=== PATIENT | female | born 1995 | race Caucasian/White ===

== ENCOUNTER 2017-12-20 22:39 | Emergency (ER) | payer MEDICAID ==
[~2017-12-20] VITALS: Ht 157.5 cm; Wt 128.8 kg
[2017-12-20 22:42] VITALS: Ht 157.5 cm; Wt 128.8 kg
[2017-12-21 02:58] VITALS: BP 131/76
== END 2017-12-21 02:58 | disposition home or self-care (01) ==
LOC: ED 22:39
DX: L02.213 Cutaneous abscess of chest wall (principal)
CPT/HCPCS: J1885; J2001; Q0092

== ENCOUNTER 2019-06-25 03:11 | Emergency (ER) | payer SELFPAY ==
[~2019-06-25] VITALS: Ht 157.5 cm; Wt 129.7 kg
[2019-06-25 03:14] VITALS: Ht 157.5 cm; Wt 129.7 kg
[2019-06-25 04:02] LABS: CALCIUM 8.3 mg/dL (8.5-10.1); CARBON DIOXIDE 25.9 mmol/L (21-32); CHLORIDE SERUM 103 mmol/L (98-107); CREATININE SERUM 0.6 mg/dL (0.6-1.0); GFR1 > 60 mL/min; GLUCOSE SERUM 245 mg/dL (74-106); POTASSIUM SERUM 3.8 mmol/L (3.5-5.1); SODIUM SERUM 139 mmol/L (136-145)
[2019-06-25 04:15] LABS: FREE T4 0.67 ng/dL (0.76-1.46)
[2019-06-25 04:16] LABS: BASOPHIL % 0.3 % (0-2); PLATELET COUNT 240 x10^3mcL (130-400); RED CELL DISTRIBUTION WIDTH 12.3 % (11.5-14.5)
[2019-06-25 05:05] LABS: microscopic required? YES; urine erythrocyte 3+ (NEGATIVE)
[2019-06-25 06:14] VITALS: BP 138/89
== END 2019-06-25 06:00 | disposition home or self-care (01) ==
LOC: ED 03:11
PROVIDERS: Emergency Medicine
DX: N93.8 Other specified abnormal uterine and vaginal bleeding (principal); N39.0 Urinary tract infection, site not specified; N83.209 Unspecified ovarian cyst, unspecified side
CPT/HCPCS: 36415; 84439; J1410; Q0092